=== PATIENT | male | born 1945 | race Caucasian/White ===

== ENCOUNTER 2016-07-05 13:05 | Emergency (ER) | payer MEDICARE, MEDICAID ==
[~2016-07-05] VITALS: Ht 170.2 cm; Wt 79.5 kg
[2016-07-05] MEDS ORDERED: LISINOPRIL20 MG PO (13:30)
[2016-07-05] MEDS ORDERED: FLOMAX0.4 M1 PO (13:32)
[2016-07-05] MEDS ORDERED: LEVOTHYROXIN125 MC1 PO (13:34)
[2016-07-05 13:48] LABS: HEMATOCRIT 32.8 % (39.0-50.0); MEAN CELL VOLUME 89.4 fL CALC (80.0-100.0); MEAN CORPUSCULAR HGB CONC 33.5 g/L CALC (32.0-36.0); NEUT# 4.97 thou/uL (1.82-7.42); RED BLOOD COUNT 3.67 mill/uL (4.70-6.10); RED CELL DISTRI WIDTH 14.1 % (11.5-15.5)
[2016-07-05 14:00] LABS: IMMATURE GRANULOCYTES 6.7 % (0.0-1.0)
[2016-07-05 14:02] LABS: ALBUMIN 2.7 g/dL (3.2-5.0); ALKALINE PHOSPHATASE 61 u/l (38-126); ANION GAP 14 (6-22 (CALC)); BILIRUBIN, TOTAL 0.2 mg/dL (0.0-1.4); BUN 33 mg/dL (8-23); BUN/CREATININE RATIO 23 (12-20 (CALC)); CALCIUM 7.8 mg/dL (8.4-10.2); CARBON DIOXIDE 20 mmol/l (22-30); CHLORIDE 107 mmol/l (95-108); CREATININE 1.4 mg/dL (0.7-1.3); GFR 50 ML/MIN (>=60 (CALC)); GFR FOR AFR.AMER. 60 ML/MIN (>=60 (CALC)); GLUCOSE 385 mg/dL (82-115); POTASSIUM 4.2 mmol/l (3.5-5.1); SGOT/AST 16 u/l (19-48); SGPT/ALT 26 u/l (11-66); SODIUM 137 mmol/l (137-146); TOTAL PROTEIN 4.7 g/dL (6.3-8.2)
[2016-07-05 22:10] VITALS: BP 181/88
== END 2016-07-05 22:15 | disposition left against medical advice (07) ==
LOC: ED 13:05 → ED-I 21:58 → ED 22:15
PROVIDERS: Family Medicine
DX: R55 Syncope and collapse (principal); I67.82 Cerebral ischemia; I21.3 ST elevation (STEMI) myocardial infarction of unspecified site; E86.1 Hypovolemia; R56.9 Unspecified convulsions; I10 Essential (primary) hypertension; R07.9 Chest pain, unspecified; Z91.19 Patient's noncompliance with other medical treatment and regimen

== ENCOUNTER 2016-07-08 05:48 | Observation (INO) | payer MEDICARE, MEDICAID ==
[~2016-07-08] VITALS: Ht 170.2 cm; Wt 74.0 kg
[~2016-07-08 05:48] MED LIST: FLOMAX0.4 M1 PO; LEVOTHYROXIN125 MC1 PO; LISINOPRIL20 MG PO
--- NOTE | 2016-07-08 05:48 | NUR ---
EMS CALLED TO PT. HOME BY SON WITH C/O FINDING HIS DAD [employer] ON THE ROAD [employer]OR. BP BY EMS 80/50. PT. STATES HE TOOK ALL OF HIS DAILY MEDS AT 0300 THIS AM. EMS ADMINISTERED APPROX. 400 ML NS. V/S NOW ARE BP 98/56 HR 63 O2 SAT ON RA 97%. NO C/O PAIN OR DISCOMFORT OFFERED.
[2016-07-08] MEDS ORDERED: TOPIRAMATE25 MG PO (06:09)
[2016-07-08] MEDS ORDERED: LYRICA50 MG PO (06:10)
[2016-07-08] MEDS ORDERED: ZANAFLEX4 MG PO (06:11)
[2016-07-08] MEDS ORDERED: ZOCOR5 MG PO (06:11)
[2016-07-08] MEDS ORDERED: LOPRESSOR 550 MG/TAB PO (06:13)
[2016-07-08] MEDS ORDERED: KLONOPIN0.5 MG PO (06:14)
[2016-07-08] MEDS ORDERED: BUSPIRONE5 MG PO (06:14)
[2016-07-08] MEDS ORDERED: PERCOCET 10/31 COMBO PO (06:15)
[2016-07-08] MEDS ORDERED: LEVEMIR100 UNIT/M SC (06:16)
[2016-07-08 06:37] LABS: HEMATOCRIT 38.7 % (39.0-50.0); HEMOGLOBIN 12.8 g/dl (14.0-18.0); MEAN CELL VOLUME 90.8 fL CALC (80.0-100.0); MEAN CORPUSCULAR HGB CONC 33.1 g/L CALC (32.0-36.0); NEUT# 5.12 thou/uL (1.82-7.42); RED BLOOD COUNT 4.26 mill/uL (4.70-6.10); RED CELL DISTRI WIDTH 14.4 % (11.5-15.5)
--- NOTE | 2016-07-08 06:51 | NUR ---
REPORT GIVEN TO HYUN POLLOCK.
[2016-07-08 06:53] LABS: ALBUMIN 3.3 g/dL (3.2-5.0); BILIRUBIN, TOTAL 0.3 mg/dL (0.0-1.4); CALCIUM 8.7 mg/dL (8.4-10.2); CREATININE 1.4 mg/dL (0.7-1.3); POTASSIUM 4.7 mmol/l (3.5-5.1); TOTAL PROTEIN 5.7 g/dL (6.3-8.2)
--- NOTE | 2016-07-08 07:05 | NUR ---
PT RESTING SUPINE IN BED IN NO ACUTE DISTRESS. ALERT AND RESPONSIVE. VSS. STATES WEAKNESS HAS IMPROVED. SRX2 AND CALL LIGHT WITHIN REACH.
[2016-07-08 07:54] LABS: URINE BILIRUBIN - DIPSTICK NEGATIVE (NEGATIVE); URINE BLOOD DIPSTICK NEGATIVE (NEGATIVE); URINE CLARITY CLEAR; URINE COLOR YELLOW; URINE GLUCOSE - DIPSTICK >=1000 mg/dL (NEGATIVE); URINE KETONE NEGATIVE (NEGATIVE); URINE LEUK ESTERASE NEGATIVE (NEGATIVE); URINE NITRITE - DIPSTICK NEGATIVE (Negative); URINE PROTEIN - DIPSTICK TRACE mg/dL (NEG-TRACE); URINE SPECIFIC GRAVITY 1.015; URINE UROBILINOGEN - DIPSTICK 0.2 E.U./dL (0.2)
--- NOTE | 2016-07-08 08:05 | NUR ---
PT ALERT AND ORIENTED X3. AWARE AND AGREEABLE TO ADMIT. PT STATES HE IS FEELING BETTER. BP 110/55,HR 67, 02 SAT 97% ON RA. SRX2 WITH CALL F[place] WITHIN REACH.
[2016-07-08 08:18] LABS: BARBITURATES NEGATIVE (NEGATIVE); COCAINE NEGATIVE (NEGATIVE); METHADONE NEGATIVE (NEGATIVE); TETRAHYDROCANNABIONOL NEGATIVE (NEGATIVE); TRICYLIC ANTIDEPRESSANTS POSITIVE (NEGATIVE)
[2016-07-08 08:19] LABS: OXCYCODONE POSITIVE (NEGATIVE)
--- NOTE | 2016-07-08 10:15 | NUR ---
PT TO ROOM VIA WC ACCOMPANIED BY STAFF; TELE MONITOR IN PLACE; A/O X3; DENIES PAIN AT THIS TIME; PT STATES HE BECAME SWEATY, HOT AND PASSED OUT; PT STATES THIS HAPPENED EARILER THIS WEEK AND WAS ADMITTED TO [facility]; ORIENTED TO ROOM AND CALL SYSTEM; WILL CONTINUE TO MONITOR.
[2016-07-08 10:59] VITALS: BP 127/71
--- NOTE | 2016-07-08 12:15 | NUR ---
PT SITTING ON SIDE OF BED; TOLERATING LUNCH WELL; CALL [place] WITHIN REACH; WILL CONTINUE TO MONITOR.
--- NOTE | 2016-07-08 14:26 | NUR ---
PT RESTING WITH EYES CLOSED; NO S/SX OF DISTRESS NOTED; CALL [place] WITHIN REACH; WILL CONTINUE TO MONITOR.
--- NOTE | 2016-07-08 14:57 | NUR ---
REPORT CALLED TO PHILL KING AT [facility] JULIO ZAZUETA
[2016-07-08 15:12] VITALS: BP 140/78
--- NOTE | 2016-07-08 15:25 | NUR ---
Discharge instructions given. Patient verbalizes understanding of same. Discharged in stable condition via Medical Transport to [facility] with [facility]. All belongings sent with pt.
== END 2016-07-08 15:45 ==
LOC: ED 05:48 → ED-I 07:24 → ED 07:28 → MS2 07:29
PROVIDERS: Emergency Medicine; ADMIT Internal Medicine; ATTEND Internal Medicine
DX: R55 Syncope and collapse (principal); I69.354 Hemiplegia and hemiparesis following cerebral infarction affecting left non-dominant side; I69.392 Facial weakness following cerebral infarction; I25.2 Old myocardial infarction; I10 Essential (primary) hypertension; E11.9 Type 2 diabetes mellitus without complications; Z79.4 Long term (current) use of insulin